=== PATIENT | female | born 1990 | race African-American/Black ===

== ENCOUNTER 2016-05-09 18:22 | Observation (INO) | payer OTHER ==
[2016-04-06 17:28] VITALS: BP 130/78
[2016-05-09 18:51] LABS: BILIRUBIN,URINE NEGATIVE (NEG); GLUCOSE,URINE NEGATIVE (NEG); NITRITE,URINE NEGATIVE (NEG); PROTEIN,URINE NEGATIVE (NEG-TRACE); UROBILINOGEN,URINE 0.2 mg/dL (0.2 mg/dL)
[2016-05-09 18:58] LABS: BARBITURATES NEG (NEG); BENZODIAZEPINES NEG (NEG); CANNABINOIDS NEG (NEG); COCAINE NEG (NEG); METHADONE NEG (NEG); OPIATES NEG (NEG); PHENCYCLIDINE NEG (NEG)
[2016-05-09 19:15] LABS: ETHANOL, URINE NEG (NEG)
== END 2016-05-09 20:20 | disposition home or self-care (01) ==
LOC: 3 SO LND 18:22
PROVIDERS: ADMIT Obstetrics & Gynecology; ATTEND Obstetrics & Gynecology
DX: O26.892 Other specified pregnancy related conditions, second trimester (principal); R10.9 Unspecified abdominal pain; Z3A.27 27 weeks gestation of pregnancy
CPT/HCPCS: 81003; 87086; G0378; G0379; G0481

== ENCOUNTER 2016-07-04 11:20 | Observation (INO) | payer OTHER ==
[2016-04-06 17:28] VITALS: BP 130/78
[2016-07-04 12:12] LABS: BILIRUBIN,URINE SMALL (NEG); GLUCOSE,URINE NEGATIVE (NEG); NITRITE,URINE NEGATIVE (NEG); PROTEIN,URINE 30 mg/dL (NEG-TRACE)
[2016-07-04 12:43] LABS: RBC,URINE RARE /HPF (0-2)
[2016-07-04 12:44] LABS: BACTERIA,URINE FEW /HPF (0-FEW); SQUAMOUS EPITHELIAL CELL,UR MANY /LPF
[2016-07-04] MEDS ORDERED: IV NORMAL SALINE 1000ML BAG 1,000 ML IV SCH (13:30)
[2016-07-04] MEDS ORDERED: IV NORMAL SALINE 1000ML BAG 1,000 ML IV ONE (13:30)
[2016-07-04] MEDS: IV RINGERS,LACTATED 1000ML 1,000 ML IV SCH ×2 (13:42→14:15)
[2016-07-04] MEDS ORDERED: ONDANSETRON PF 4 MG/2 ML VIAL. IV SCH (14:00)
== END 2016-07-04 18:39 | disposition home or self-care (01) ==
LOC: 3 SO LND 11:20
PROVIDERS: ADMIT Specialist; ATTEND Specialist
DX: O21.2 Late vomiting of pregnancy (principal); O26.893 Other specified pregnancy related conditions, third trimester; R19.7 Diarrhea, unspecified; R11.0 Nausea; Z3A.35 35 weeks gestation of pregnancy
CPT/HCPCS: 81001; 96361; 96374; G0378; G0379; J2405; 87086; J7120

== ENCOUNTER 2016-08-30 08:19 | Emergency (ER) | payer OTHER ==
[~2016-08-30] VITALS: Ht 154.9 cm; Wt 74.8 kg
[2016-08-30 09:27] LABS: BASO % 1 % (0-3); EOS % 3 % (0-3); HEMATOCRIT 43.7 % (36.0-47.0); HEMOGLOBIN 14.5 g/dL (12.0-15.5); LYMPH # 1.2 x10^3/uL (1.0-4.8); LYMPH % 15 % (24-48); MEAN CORPUSCULAR HEMOGLOBIN 28 pg (25-35); MEAN CORPUSCULAR HGB CONC 33 g/dL (31-37); MEAN CORPUSCULAR VOLUME 84 fL (79-100); MONO % 6 % (0-9); NEUT % 77 % (31-73); PLATELET COUNT 238 x10^3/uL (140-400); RED BLOOD COUNT 5.21 x10^6/uL (3.50-5.40); RED CELL DISTRIBUTION WIDTH 12.8 % (11.5-14.5); WHITE BLOOD COUNT 8.5 x10^3/uL (4.0-11.0)
[2016-08-30 09:28] LABS: BILIRUBIN,URINE SMALL (NEG); GLUCOSE,URINE NEGATIVE (NEG); NITRITE,URINE NEGATIVE (NEG); PROTEIN,URINE NEGATIVE (NEG-TRACE)
[2016-08-30 09:43] LABS: BACTERIA,URINE 0 /HPF (0-FEW); RBC,URINE TNTC /HPF (0-2); WBC,URINE FOBS /HPF (0-4)
--- NOTE | 2016-08-30 09:57 | RAD ---
Pelvic ultrasound, 08/30/2016: History: vaginal bleeding Transabdominal and transvaginal scans were obtained. The uterus measures 8.6 x 5.2 x 7.5 cm. A thin central uterine echo stripe is identified on the transvaginal scans. Adjacent to this thin stripe the myometrial echo pattern is mildly heterogeneous and generally hyperemic. No discrete uterine mass is seen. The ovaries are of normal size. No adnexal mass is seen. There is a trace amount of free fluid in the pelvis. IMPRESSION: Hyperemic myometrium raising the possibility of infection. The presence of a thin central uterine echo stripe makes retained products of conception or gestational trophoblastic disease less likely.
[2016-08-30] MEDS ORDERED: CLINDAMYCIN 900MG PREMIX 50 ML IV ONE (10:15)
[2016-08-30] MEDS ORDERED: CLIN-44 PO (12:08)
[2016-08-30] MEDS ORDERED: METH0.2T36 PO (12:08)
--- NOTE | 2016-08-30 12:09 | PHYS DOC ---
Past Medical History Past Medical History: No Pertinent History Past Surgical History: Tubal ligation Alcohol Use: None Drug Use: None Adult General Chief Complaint Chief Complaint: VAGINAL PROBLEM HPI HPI Patient is a 26 year old female with no significant history who presents today with vaginal bleeding that began much first 2016. Patient states she had a normal vaginal delivery at [facility] on July 05, 2016. She states she's been bleeding since then. She states the bleeding was initially small amounts but it increased in the last couple days, she states she is using 1 feminine pad every 2 hours. Patient is also complaining of slight lower abdominal cramping. Denies any fever. She has not followed up with her OB at [facility]. This is her third child. Review of Systems Review of Systems Constitutional: Denies fever or chills [] Eyes: Denies change in visual acuity, redness, or eye pain [] HENT: Denies nasal congestion or sore throat [] Respiratory: Denies cough or shortness of breath [] Cardiovascular: No additional information not addressed in HPI [] GI: Vaginal bleeding : Denies dysuria or hematuria [] Musculoskeletal: Denies back pain or joint pain [] Integument: Denies rash or skin lesions [] Neurologic: Denies headache, focal weakness or sensory changes [] Endocrine: Denies polyuria or polydipsia [] Current Medications Current Medications Current Medications Medications (Trade) Dose Ordered Sig/Smiley Start Time Stop Time Status Last Admin Dose Admin Clindamycin Phosphate (Cleocin 900mg Premix) 50 ml @ 100 mls/hr 1X ONCE 08/30/16 10:15 08/30/16 10:44 DC 08/30/16 10:53 100 MLS/HR Allergies Allergies Allergies Coded Allergies Type Severity Reaction Last Updated Verified No Known Drug Allergies 12/20/14 No Physical Exam Physical Exam Constitutional: Well developed, well nourished, no acute distress, non-toxic appearance. [] HENT: Normocephalic, atraumatic, bilateral external ears normal, oropharynx moist, no oral exudates, nose normal. [] Eyes: PERRLA, EOMI, conjunctiva normal, no discharge. [] Neck: Normal range of motion, no tenderness, supple, no stridor. [] Cardiovascular:Heart rate regular rhythm, no murmur [] Lungs & Thorax: Bilateral breath sounds clear to auscultation [] Abdomen: Bowel sounds normal, soft, no tenderness, no masses, no pulsatile masses. [] Patient unable to tolerate pelvic exam. Skin: Warm, dry, no erythema, no rash. [] Back: No tenderness, no CVA tenderness. [] Extremities: No tenderness, no cyanosis, no clubbing, ROM intact, no edema. [] Neurologic: Alert and oriented X 3, normal motor function, normal sensory function, no focal deficits noted. [] Psychologic: Affect normal, judgement normal, mood normal. [] Current Patient Data Vital Signs Vital Signs Date Time Temp Pulse Resp B/P Pulse Ox O2 Delivery O2 Flow Rate FiO2 08/30/16 08:44 98.2 62 16 121/73 99 Room Air 98.2 Lab Values Laboratory Tests Test 08/30/16 09:15 White Blood Count 8.5x10^3/uL (4.0-11.0) Red Blood Count 5.21x10^6/uL (3.50-5.40) Hemoglobin 14.5g/dL (12.0-15.5) Hematocrit 43.7% (36.0-47.0) Mean Corpuscular Volume 84fL (79-100) Mean Corpuscular Hemoglobin 28pg (25-35) Mean Corpuscular Hemoglobin Concent 33g/dL (31-37) Red Cell Distribution Width 12.8% (11.5-14.5) Platelet Count 238x10^3/uL (140-400) Neutrophils (%) (Auto) 77% (31-73) H Lymphocytes (%) (Auto) 15% (24-48) L Monocytes (%) (Auto) 6% (0-9) Eosinophils (%) (Auto) 3% (0-3) Basophils (%) (Auto) 1% (0-3) Neutrophils # (Auto) 6.5x10^3uL (1.8-7.7) Lymphocytes # (Auto) 1.2x10^3/uL (1.0-4.8) Monocytes # (Auto) 0.5x10^3/uL (0.0-1.1) Eosinophils # (Auto) 0.2x10^3/uL (0.0-0.7) Basophils # (Auto) 0.0x10^3/uL (0.0-0.2) Urine Collection Type Unknown Urine Color Smiley Urine Clarity Clear Urine pH 6.0 Urine Specific [place] 1.025 Urine Protein Negativemg/dL (NEG-TRACE) Urine Glucose (UA) Negativemg/dL (NEG) Urine Ketones (Stick) Tracemg/dL (NEG) Urine Blood Large (NEG) Urine Nitrite Negative (NEG) Urine Bilirubin Small (NEG) Urine Urobilinogen Dipstick 1.0mg/dL (0.2 mg/dL) Urine Leukocyte Esterase Moderate (NEG) Urine RBC Tntc/HPF (0-2) Urine WBC Fobs/HPF (0-4) Urine Bacteria 0/HPF (0-FEW) Laboratory Tests 08/30/16 09:15 EKG EKG [] Radiology/Procedures Radiology/Procedures [] Course & Med Decision Making Course & Med Decision Making Pertinent Labs and Imaging studies reviewed. (See chart for details) Patient is in the ED with vaginal bleeding that began July 05, 2016 after vaginal delivery. She delivered at [facility], she has not followed up with her MOLD SWABBER at [facility]. CBC with normal WBC and normal hemoglobin and hematocrit. Negative urine hCG, urine positive for UTI. Consulted with Dr. Guadalupe Patient was started on clindamycin. 10:24 consulted with MOLD SWABBER, she requested we put patient on Methergine one tablet twice a day for 2-3 days. She requested patient to continue clindamycin. She requested patient to follow up with her MOLD SWABBER or herself in 2- 3 days if the bleeding doesn't stop for possible D&C. Information was given to patient, she was discharged in stable condition. Dragon Disclaimer Dragon Disclaimer This electronic medical record was generated, in whole or in part, using a voice recognition dictation system. Departure Departure Impression: Primary Impression: Uterine infection Additional Impressions: Urinary tract infection Dysfunctional uterine bleeding Disposition: 01 HOME, SELF-CARE Condition: STABLE Referrals: NO PCP (PCP) QIAN VILLALPANDO MD Follow up with your MOLD SWABBER in 2-3 days or the provided MOLD SWABBER. Patient Instructions: Urinary Tract Infection, Uterine Bleeding, Dysfunctional Additional Instructions: You were seen for dysfunctional uterine bleeding. Your ultrasound shows you could have infection in the uterus and you also have UTI. We put you on Methergine, if your bleeding does not stop in the next 2-3 days, contact your OB /[employer] and follow-up as soon as possible. Try and contact your MOLD SWABBER today and set up a follow-up appointment to be seen in the next 2-3 days whether the bleeding stops or not. Complete your antibiotics. Scripts Clindamycin Hcl 150 Mg Capsule3 Cap PO TID #90 CAP Prov:KATARINA MCKEON APRN 08/30/16 Methylergonovine Maleate (Methergine)0.2 Mg Tablet0.2 Mg PO BID #6 TAB Prov:KATARINA MCKEON APRN 08/30/16 Problem Qualifiers Additional Impressions: Urinary tract infection Urinary tract infection type: site unspecified Hematuria presence: without hematuria Qualified Code: N39.0 - Urinary tract infection, site not specified KATARINA MCKEON APRN Aug 30, 2016 12:09
[2016-08-30 12:15] VITALS: BP 115/84
== END 2016-08-30 12:20 | disposition home or self-care (01) ==
LOC: ER 08:19
DX: N71.9 Inflammatory disease of uterus, unspecified (principal); N93.8 Other specified abnormal uterine and vaginal bleeding; N39.0 Urinary tract infection, site not specified; Z98.51 Tubal ligation status
CPT/HCPCS: 36415; 76830; 76856; 81001; 81025; 84703; 85027; 96365; 99285; J3490

== ENCOUNTER 2017-07-31 12:15 | Emergency (ER) | payer OTHER ==
[2017-07-31 12:34] LABS: URINE HCG POC HCG NEGATIVE (Negative)
[2017-07-31] MEDS ORDERED: 0.9 % SODIUM CHLORIDE 10 ML DISP.SYRIN. IV (12:45)
[2017-07-31] MEDS: ONDANSETRON PF 4 MG/2 ML VIAL. IV (13:05)
[2017-07-31] MEDS: KETOROLAC 30 MG/ML INJ. IV (13:06)
[2017-07-31] MEDS: IV NORMAL SALINE 1000ML BAG 1,000 ML IV (13:07)
[2017-07-31 13:16] LABS: ADD MAN DIFF? NO
[2017-07-31 13:22] LABS: BASO # 0.1 x10^3/uL (0.0-0.2); BASO % 1 % (0-3); BILIRUBIN,URINE NEGATIVE (NEG); CLARITY,URINE CLEAR; COLOR,URINE YELLOW; EOS # 0.2 x10^3/uL (0.0-0.7); EOS % 3 % (0-3); GLUCOSE,URINE NEGATIVE (NEG); HEMATOCRIT 42.8 % (36.0-47.0); HEMOGLOBIN 14.1 g/dL (12.0-15.5); LYMPH # 1.4 x10^3/uL (1.0-4.8); LYMPH % 20 % (24-48); MEAN CORPUSCULAR HEMOGLOBIN 28 pg (25-35); MEAN CORPUSCULAR HGB CONC 33 g/dL (31-37); MEAN CORPUSCULAR VOLUME 86 fL (79-100); MONO # 0.6 x10^3/uL (0.0-1.1); MONO % 8 % (0-9); NEUT # 4.6 x10^3uL (1.8-7.7); NEUT % 68 % (31-73); NITRITE,URINE NEGATIVE (NEG); PH,URINE 6.5; PLATELET COUNT 262 x10^3/uL (140-400); PROTEIN,URINE 30 mg/dL (NEG-TRACE); RED CELL DISTRIBUTION WIDTH 13.3 % (11.5-14.5); UROBILINOGEN,URINE 0.2 mg/dL (0.2 mg/dL); WHITE BLOOD COUNT 6.8 x10^3/uL (4.0-11.0)
[2017-07-31 13:28] LABS: ANION GAP 9 (6-14); BLOOD UREA NITROGEN 7 mg/dL (7-20); CALCIUM 8.3 mg/dL (8.5-10.1); CARBON DIOXIDE 26 mmol/L (21-32); CHLORIDE 105 mmol/L (98-107); CREATININE 0.7 mg/dL (0.6-1.0); GFR 121.5; GLUCOSE 93 mg/dL (70-99); POTASSIUM 3.9 mmol/L (3.5-5.1); SODIUM 140 mmol/L (136-145)
[2017-07-31 13:35] LABS: ALBUMIN 3.4 g/dL (3.4-5.0); ALK PHOS 38 U/L (46-116); ALT (SGPT) 19 U/L (14-59); AST (SGOT) 15 U/L (15-37); DIRECT BILIRUBIN < 0.1 mg/dL (0.0-0.2); LIPASE 96 U/L (73-393); SQUAMOUS EPITHELIAL CELL,UR MOD /LPF; TOTAL BILIRUBIN 0.4 mg/dL (0.2-1.0); TOTAL PROTEIN 7.2 g/dL (6.4-8.2)
[2017-07-31 13:36] LABS: BACTERIA,URINE FEW /HPF (0-FEW)
== END 2017-07-31 14:01 | disposition home or self-care (01) ==
LOC: ER 12:15
DX: N39.0 Urinary tract infection, site not specified (principal); N92.0 Excessive and frequent menstruation with regular cycle; F17.210 Nicotine dependence, cigarettes, uncomplicated; Z87.442 Personal history of urinary calculi; Z98.51 Tubal ligation status
CPT/HCPCS: 36415; 74176; 80048; 80076; 81001; 81025; 83690; 85025; 87086; 96361; 96374; 96375; 99285-25; J1885; J2405; J7030